=== PATIENT | male | born 1980 ===

== ENCOUNTER 2017-08-03 16:34 | Emergency (ER) | payer MEDICAID ==
[2017-08-03 17:04] VITALS: TEMP 98.5; BMI 26.6
[2017-08-03] MEDS ORDERED: Albuterol-Ipratrop 3 mg / 0.5 (3 ml) UD IH STA (17:04)
--- NOTE | 2017-08-03 17:28 | ED PDOC ---
Arrival/HPI - General Time Seen by Provider: 08/03/17 17:03 Historian: Patient - History of Present Illness Narrative History of Present Illness (Text): 08/03/17 17:18 37yo male with PMhx of Asthma who present with complaint of chest tightness. states he suddenly started having chest tightness this afternoon. Notes history of Asthma. denies wheezing, chest pain, diaphoresis, SOB, E edema, calf pain, recent travel, recent surgery, cough, fever, any other complaint. Past Medical History - Provider Review Nursing Documentation Reviewed: Yes Family/Social History - Physician Review Nursing Documentation Reviewed: Yes Family/Social History: Unknown Family HX Allergies/Home Meds Allergies/Adverse Reactions: Allergies No Known Allergies Allergy (Verified 08/03/17 17:37) Review of Systems - Physician Review All systems were reviewed & negative as marked: Yes - Review of Systems Constitutional: Normal Eyes: Normal ENT: Normal Respiratory: SOB, Other (chest tightness). absent: Cough Cardiovascular: Normal Gastrointestinal: Normal Genitourinary Male: Normal Musculoskeletal: Normal Skin: Normal Neurological: Normal Endocrine: Normal Hemo/Lymphatic: Normal Psychiatric: Normal Physical Exam Vital Signs Reviewed: Yes Vital Signs Temp Pulse Resp BP Pulse Ox 08/03/17 17:00 98.5 F 66 20 127/74 98 Temperature: Afebrile Blood Pressure: Normal Pulse: Regular Respiratory Rate: Normal Appearance: Positive for: Well-Appearing, Non-Toxic, Comfortable Pain Distress: None Mental Status: Positive for: Alert and Oriented X 3 - Systems Exam Head: Present: Atraumatic, Normocephalic Pupils: Present: PERRL Extroacular Muscles: Present: EOMI Conjunctiva: Present: Normal Mouth: Present: Moist Mucous Membranes Neck: Present: Normal Range of Motion Respiratory/Chest: Present: Clear to Auscultation, Good Air Exchange, Other ( Coarse BS diffusely). No: Respiratory Distress, Accessory Muscle Use, Wheezes, Decreased Breath Sounds, Rales, Retracting, Rhonchi, Tachypneic Cardiovascular: Present: Regular Rate and Rhythm, Normal S1, S2. No: Murmurs Abdomen: No: Tenderness, Distention, Peritoneal Signs Back: Present: Normal Inspection Upper Extremity: Present: Normal Inspection. No: Cyanosis, Edema Lower Extremity: Present: Normal Inspection. No: Edema Neurological: Present: GCS=15, CN II-XII Intact, Speech Normal Skin: Present: Warm, Dry, Normal Color. No: Rashes Psychiatric: Present: Alert, Oriented x 3, Normal Insight, Normal Concentration Medical Decision Making ED Course and Treatment: 08/03/17 18:20 PT in ED for stated history. He was not in any distress/ not hypoxic. He was treated with Duoneb x3 in ED. On re evaluation he states he feels better. His lung was CTA b/l. He remain hemodynamically stable. He was counselled on smoking cessation. Rx of Albuterol given. - RAD Interpretation Radiology Orders: 08/03/17 17:04 CHEST PORTABLE [RAD] Stat - Medication Orders Current Medication Orders: Discontinued Medications Albuterol/Ipratropium (Duoneb 3 Mg/0.5 Mg (3 Ml) Ud) 3 ml IH STAT STA Stop: 08/03/17 17:05 Last Admin: 08/03/17 17:24 Dose: 3 ml Disposition/Present on Arrival - Present on Arrival Any Indicators Present on Arrival: No History of DVT/PE: No History of Uncontrolled Diabetes: No Urinary Catheter: No History of Decub. Ulcer: No History Surgical Site Infection Following: None - Disposition Have Diagnosis and Disposition been Completed?: Yes Diagnosis: Asthma attack Disposition: HOME/ ROUTINE Disposition Time: 18:25 Patient Plan: Discharge Condition: STABLE Discharge Instructions (ExitCare): Asthma in Adults Additional Instructions: Follow up with your doctor Return to ED for any new symptoms Prescriptions: Albuterol HFA [Ventolin HFA 90 mcg/actuation (8 g)] 2 puff IH [id number] #1 puff Referrals: Nicole Garza [Primary Care Provider] - Follow up with primary
--- NOTE | 2017-08-03 17:42 | RAD ---
HISTORY: SOB COMPARISON: No prior. FINDINGS: LUNGS: No active pulmonary disease. PLEURA: No significant pleural effusion identified, no pneumothorax apparent. CARDIOVASCULAR: Normal. OSSEOUS STRUCTURES: No significant abnormalities. VISUALIZED UPPER ABDOMEN: Normal. OTHER FINDINGS: None. IMPRESSION: No active disease.
[2017-08-03 19:01] VITALS: BP 117/74; PULSE 62; RESP 18; O2SAT 97
--- NOTE | 2017-08-03 19:17 | CARD ---
APPROVED REPORT EKG Measurement Heart [id number] <Conclusion> Normal sinus rhythm Normal ECG
== END 2017-08-03 18:54 | disposition home or self-care (01) ==
LOC: ED 16:34
DX: J45.909 Unspecified asthma, uncomplicated (principal)